=== PATIENT | female | born 1990 | race Caucasian/White ===

== ENCOUNTER 2018-07-12 12:47 | Emergency (ER) | payer BC ==
[2018-07-12 13:20] LABS: URINE PH (Dip) POC 6.5 (5.0-8.5)
[2018-07-12 13:20] LABS: URINE BLOOD (Dip) POC 3+ (NEGATIVE); URINE GLUCOSE (Dip) POC Negative (NEGATIVE); URINE KETONES (Dip) POC Negative (NEGATIVE); URINE LEUKOCYTE EST (Dip) POC Negative (NEGATIVE); URINE NITRITE (Dip) POC Negative (NEGATIVE); URINE TOTAL PROTEIN POC Trace (NEGATIVE)
[2018-07-12] MEDS: METOCLOPRAMIDE 10 MG INJ IV (13:21)
[2018-07-12] MEDS: SOD CHLORIDE 0.9% 1,000 ML IV (13:21)
[2018-07-12] MEDS: DIPHENHYDRAMINE 50 MG INJ IV (13:21)
[2018-07-12] MEDS: KETOROLAC 30 MG INJ IV (13:27)
== END 2018-07-12 14:40 | disposition home or self-care (01) ==
LOC: FTE 12:47
DX: R51 Headache (principal)
CPT/HCPCS: 70450; 81003; 81025; 96361; 96374; 96375; 99285-25